=== PATIENT | male | born 1990 | race Caucasian/White ===

== ENCOUNTER 2020-09-15 17:05 | Emergency (ER) | payer SELFPAY ==
[~2020-09-15] VITALS: Ht 195.6 cm; Wt 86.3 kg
[2020-09-15 17:24] VITALS: BP 144/78
--- NOTE | 2020-09-15 17:43 | RAD ---
EXAM: 3 views of the left wrist DATE: 09/15/2020 5:23 PM INDICATION: Reason: dog bite / Spl. Instructions: / History: COMPARISON: No Prior FINDINGS: No acute fracture or dislocation. Joint spaces are preserved without significant degenerative/prolife rative change. Soft tissue swelling with foci of gas at the radial and palmar aspect of the left wris t. No definite retained radiopaque foreign body. IMPRESSION: 1. Soft tissue swelling and gas about the left wrist without definite retained radiopaque foreign mario alberto dy. 2. No associated osseous abnormality. Electronically signed by: Justino Herman MD (09/15/2020 5:40 PM) DON[facility]
--- NOTE | 2020-09-15 17:58 | PHYS DOC ---
Past History Past Surgical History: Appendectomy Alcohol Use: None General Adult EDM: Chief Complaint: ANIMAL BITE HPI: HPI: Patient is a [age] year old [sex] who presents with [] Review of Systems: Review of Systems: Constitutional: Denies fever or chills Eyes: Denies change in visual acuity HENT: Denies nasal congestion or sore throat Respiratory: Denies cough or shortness of breath Cardiovascular: Denies chest pain or edema GI: Denies abdominal pain, nausea, vomiting, bloody stools or diarrhea : Denies dysuria Musculoskeletal: Denies back pain or joint pain Integument: Denies rash Neurologic: Denies headache, focal weakness or sensory changes Endocrine: Denies polyuria or polydipsia Lymphatic: Denies swollen glands Psychiatric: Denies depression or anxiety Allergies: Allergies: Allergies Coded Allergies Type Severity Reaction Last Updated Verified No Known Drug Allergies 09/15/20 No Physical Exam: PE: Constitutional: Well developed, well nourished, no acute distress, non-toxic appearance. [] HENT: Normocephalic, atraumatic, bilateral external ears normal, oropharynx moist, no oral exudates, nose normal. [] Eyes: PERRLA, EOMI, conjunctiva normal, no discharge. [] Neck: Normal range of motion, no tenderness, supple, no stridor. [] Cardiovascular:Heart rate regular rhythm, no murmur [] Lungs & Thorax: Bilateral breath sounds clear to auscultation [] Abdomen: Bowel sounds normal, soft, no tenderness, no masses, no pulsatile masses. [] Skin: Warm, dry, no erythema, no rash. [] Back: No tenderness, no CVA tenderness. [] Extremities: No tenderness, no cyanosis, no clubbing, ROM intact, no edema. [] Neurologic: Alert and oriented X 3, normal motor function, normal sensory function, no focal deficits noted. [] Psychologic: Affect normal, judgement normal, mood normal. [] Current Patient Data: Vital Signs: Vital Signs Date Time Temp Pulse Resp B/P (MAP) Pulse Ox O2 Delivery O2 Flow Rate FiO2 09/15/20 17:24 98.5 83 22 144/78 100 EKG: EKG: [] Radiology/Procedures: Radiology/Procedures: []EXAM: 3 views of the left wrist DATE: 09/15/2020 5:23 PM INDICATION: Reason: dog bite / Spl. Instructions: / History: COMPARISON: No Prior FINDINGS: No acute fracture or dislocation. Joint spaces are preserved without significant degenerative/proliferative change. Soft tissue swelling with foci of gas at the radial and palmar aspect of the left wrist. No definite retained radiopaque foreign body. IMPRESSION: 1. Soft tissue swelling and gas about the left wrist without definite retained radiopaque foreign body. 2. No associated osseous abnormality. Electronically signed by: Justino Herman MD (09/15/2020 5:40 PM) [facility] Heart Score: C/O Chest Pain: No Risk Factors: Risk Factors: DM, Current or recent (<one month) smoker, HTN, HLP, family history of CAD, obesity. Risk Scores: Score 0 - 3: 2.5% MACE over next 6 weeks - Discharge Home Score 4 - 6: 20.3% MACE over next 6 weeks - Admit for Clinical Observation Score 7 - 10: 72.7% MACE over next 6 weeks - Early Invasive Strategies Course & Med Decision Making: Course & Med Decision Making Pertinent Labs and Imaging studies reviewed. (See chart for details) [] John Disclaimer: Dragon Disclaimer: This electronic medical record was generated, in whole or in part, using a voice recognition dictation system. Departure Departure: Referrals: PCP,PAULA (PCP) SHERLEY VILA APRN Sep 15, 2020 17:58
== END 2020-09-15 18:36 | disposition left against medical advice (07) ==
LOC: ER 17:05
DX: S61.532A Puncture wound without foreign body of left wrist, initial encounter (principal); W54.0XXA Bitten by dog, initial encounter; Y93.89 Activity, other specified; Y92.481 Parking lot as the place of occurrence of the external cause; Y99.8 Other external cause status
CPT/HCPCS: 73110; 99283

== ENCOUNTER 2021-05-23 17:07 | Emergency (ER) | payer SELFPAY ==
[~2021-05-23] VITALS: Ht 195.6 cm; Wt 95.0 kg
--- NOTE | 2021-05-23 17:11 | PHYS DOC ---
Past History Past Surgical History: Appendectomy Alcohol Use: None Adult General HPI HPI Patient is a 30 year old male who presents with dog bite and infection to right upper extremity. Patient states he was bitten by his own dog 3 days earlier. He did not immediately seek medical attention. His dog is reportedly up-to-date on immunizations. He sustained injury to the right forearm. He comes to the ER today with worsening swelling, erythema and pain in the right forearm. He noted some purulent drainage as well over the last 24 hours. No systemic symptoms. Denies fever. No loss of motor function. Review of Systems Review of Systems Constitutional: Denies fever or chills Eyes: Denies change in visual acuity HENT: Denies nasal congestion or sore throat Respiratory: Denies cough or shortness of breath Cardiovascular: No additional information not addressed in HPI GI: Denies abdominal pain, nausea, vomiting : Denies dysuria or hematuria Musculoskeletal: As documented in HPI Integument: As documented in HPI Neurologic: Denies headache All other systems were reviewed and found to be within normal limits, except as documented in this note. Allergies Allergies Allergies Coded Allergies Type Severity Reaction Last Updated Verified No Known Drug Allergies 09/15/20 No Physical Exam Physical Exam Constitutional: Well developed, well nourished, no acute distress, non-toxic appearance HENT: Normocephalic, atraumatic, bilateral external ears normal Eyes: PERRLA, EOMI Neck: Normal range of motion Cardiovascular:Heart rate regular rhythm, no murmur Lungs & Thorax: Bilateral breath sounds clear to auscultation Skin: Large wound over both the dorsal and volar aspect of the right mid forearm. The wound is surrounded by a very large amount of local soft tissue swelling and erythematous skin. The wound is draining purulent appearing material copious amounts. Back: Normal ROM Extremities: Soft tissue injury about the right upper extremity described above. Patient has full flexion and extension mechanisms intact about the wrist. Neurologic: Alert and oriented X 3 Psychologic: Affect normal, very anxious EKG EKG [] Radiology/Procedures Radiology/Procedures [] Heart Score C/O Chest Pain: N/A Risk Factors: Risk Factors: DM, Current or recent (<one month) smoker, HTN, HLP, family history of CAD, obesity. Risk Scores: Risk Factors: DM, Current or recent (<one month) smoker, HTN, HLP, family history of CAD, obesity. Course & Med Decision Making Course & Med Decision Making Pertinent Labs and Imaging studies reviewed. (See chart for details) Seen and examined on arrival to his room. Patient is afebrile and has no systemic symptoms but has very severe appearing infection secondary to dog bite in the right upper extremity, soft tissue. Copious amounts of purulent drainage is present. Today, we will collect culture of the drainage. Orders are placed for IV, pain medications, blood cultures and empiric broad spectrum coverage with vancomycin and Zosyn. Suspect patient will require admission to the hospital for IV antibiotics. Plain film imaging also ordered. 18:00: Transfer care to Dr. Madera. F/u on labs, sx relief. Admit for IV antibiotic treatment. Dragon Disclaimer John Disclaimer This electronic medical record was generated, in whole or in part, using a voice recognition dictation system. Departure Departure: Impression: Primary Impression: Dog bite of right forearm Additional Impression: Cellulitis Condition: IMPROVED Referrals: PCP,NO (PCP) Problem Qualifiers RAMA VICTORIA DO May 23, 2021 17:11
[2021-05-23] MEDS ORDERED: IV NORMAL SALINE 1,000ML 1,000 ML IV ONE (17:30)
[2021-05-23] MEDS ORDERED: VANCOMYCIN PER PHARMACY MC PRN (17:30)
--- NOTE | 2021-05-23 17:40 | RAD ---
Exam: Right forearm 2 views INDICATION: Dog bite right forearm TECHNIQUE: Frontal and lateral views the right forearm Comparisons: None FINDINGS: Soft tissue gas noted at the distal forearm. Small ossific densities noted adjacent to the distal rad ius. Bone mineralization is normal. IMPRESSION: Small radiopaque densities noted adjacent to the distal radius which could relate to fracture fragmen ts versus radiopaque foreign bodies. Correlate with physical exam. Electronically signed by: Alexia Garcia MD (05/23/2021 5:38 PM) EILEEN
[2021-05-23] MEDS ORDERED: VANCOMYCIN 2 GM in IV NORMAL SALINE 500ML 500 ML IV ONE (17:45)
[2021-05-23 18:15] LABS: BASO # 0.2 x10^3/uL (0.0-0.2); BASO % 2 % (0-3); EOS % 0 % (0-3); HEMOGLOBIN 13.9 g/dL (13.0-17.5); LYMPH # 1.1 x10^3/uL (1.0-4.8); LYMPH % 10 % (24-48); MEAN CORPUSCULAR HEMOGLOBIN 30 pg (25-35); MEAN CORPUSCULAR HGB CONC 33 g/dL (31-37); MEAN CORPUSCULAR VOLUME 89 fL (79-100); MONO # 0.9 x10^3/uL (0.0-1.1); MONO % 8 % (0-9); NEUT # 8.6 x10^3uL (1.8-7.7); NEUT % 80 % (31-73); PLATELET COUNT 197 x10^3/uL (140-400); RED BLOOD COUNT 4.71 x10^6/uL (4.30-5.70); RED CELL DISTRIBUTION WIDTH 14.1 % (11.5-14.5); WHITE BLOOD COUNT 10.7 x10^3/uL (4.0-11.0)
[2021-05-23 18:25] LABS: CALCIUM 8.8 mg/dL (8.5-10.1); CREATININE 0.7 mg/dL (0.7-1.3); GFR 130.7; POTASSIUM 3.8 mmol/L (3.5-5.1)
[2021-05-23 18:27] LABS: C REACTIVE PROTEIN 78.3 mg/L (0-3.3)
[2021-05-23] MEDS ORDERED: ONDANSETRON PF 4 MG/2 ML VIAL. IVP PRN (18:45)
[2021-05-23] MEDS ORDERED: IV RINGERS SOLUTION,LACTATED 1,000 ML IV SCH (18:45)
[2021-05-23] MEDS ORDERED: MORPHINE SULFATE 10 MG/ML SYRINGE. SQ PRN (18:45)
[2021-05-23] MEDS ORDERED: KETOROLAC 60 MG/2 ML VIAL. IM PRN (18:45)
[2021-05-23] MEDS ORDERED: metroNIDAZOLE 500 MG TABLET PO ONE (18:45)
[2021-05-23] MEDS ORDERED: ACETAMINOPHEN 325 MG TABLET PO PRN (18:45)
[2021-05-23] MEDS ORDERED: cefTRIAXone SODIUM 1 GM VIAL ONE (18:58)
[2021-05-23] MEDS ORDERED: IV NORMAL SALINE 50ML 50 ML ONE (18:58)
[2021-05-23] MEDS ORDERED: DIPHTH,PERTUSS(ACELL),TET TOX 0.5 ML DISP.SYRIN. VAX IM ONE (19:00)
[2021-05-23] MEDS ORDERED: METR375C PO (19:18)
[2021-05-23] MEDS ORDERED: AMOX1TAB PO (19:18)
[2021-05-23 19:36] LABS: SEDIMENTATION RATE 29 (0-15)
[2021-05-23 19:40] LABS: % LYMPHS 10 % (24-48); % MONOS 7 % (0-10); % SEGS 83 % (35-66)
[2021-05-23 19:41] LABS: PLT ESTIMATE ADEQUATE (ADEQUATE)
[2021-05-23] MEDS ORDERED: IPRATRPIUM/ALBUTEROL 0.5/2.5MG 3 ML NEBU. NEB SCH (20:00)
--- NOTE | 2021-05-23 20:42 | NUR ---
Pharmacy Vancomycin Dosing Note S:Consulted to monitor and dose vancomycin started 05/23/21. O:OBI DUNLAP is a 30 year old M with Cellulitis, DOG BITE . Height: 6 feet, 5 inches Weight: 95.0 kg [place] Body Weight: 89.10 Adjusted Body Weight: 91.46 Dosing Weight: Actual Other Antibiotics: Ceftriaxone IM and Metronidazole PO LABS: Last BUN: 13 Last Creatinine: 0.7 Creatinine Clearance: 195.99 Last WBC: 10.7 Vancomycin Dosing: Loading Dose: 2000 mg x1 Dosing Weight: Actual Target Trough: 10-20 A: Based on: Actual weight, renal function, and diagnosis P: 1. Begin Vancomycin 1500 mg IV q8h 2. Follow up Trough level on 05/24/21 at 1930 3. Pharmacy will continue to monitor, follow and adjust therapy as needed. NORRIS NAM, 05/23/215
[2021-05-23 20:51] VITALS: BP 145/70
[2021-05-23] MEDS ORDERED: metroNIDAZOLE 500 MG TABLET PO SCH (21:00)
[2021-05-23] MEDS ORDERED: diphenhydrAMINE HCL 25 MG CAPSULE PO ONE (21:00)
[2021-05-24] MEDS ORDERED: VANCOMYCIN 1.5 GM in IV NORMAL SALINE 500ML 500 ML IV SCH (04:00)
[2021-05-24] MEDS ORDERED: VANCOMYCIN 1 GM in IV NORMAL SALINE 250ML 250 ML IV SCH (09:00)
[2021-05-24] MEDS ORDERED: cefTRIAXone IM 1 GM VIAL IM SCH (09:00)
== END 2021-05-23 21:47 | disposition admitted as inpatient to this hospital (09) ==
LOC: ER 17:07 → ER HOLD 18:43 → UNDOADMOB 18:43 → ER HOLD 20:18 → 1 SOUTH 20:18 → ER 21:47
DX: S51.851A Open bite of right forearm, initial encounter (principal); L03.113 Cellulitis of right upper limb; Z20.822 Contact with and (suspected) exposure to COVID-19; W54.0XXA Bitten by dog, initial encounter; Y93.89 Activity, other specified; Y92.89 Other specified places as the place of occurrence of the external cause; Y99.8 Other external cause status
CPT/HCPCS: 29125; 36415; 73090; 80048; 83605; 85007; 85025; 85651; 86140; 87040; 87071; 87426; 96361; 96365; 96366; 96367; 96372; 96375; 99284; C9803; J0696; J2270; J3010; J3370; J7030; J7040; Q0163; U0003